=== PATIENT | female | born 1980 | race Hispanic/Latino ===

== ENCOUNTER 2018-11-01 13:24 | Inpatient (IN) | payer OTHER ==
[2018-11-01] MEDS ORDERED: KETOROLAC 30 MG/ML INJ ONE (14:43)
[2018-11-01] MEDS ORDERED: NA CHLORIDE 0.9% 1,000 ML ONE ×2 (14:44→16:30)
[2018-11-01 14:54] LABS: ALT/SGPT 190 U/L (12-78); AST/SGOT 265 U/L (15-37); Albumin 3.7 g/dL (3.4-5.0); Alkaline Phosphatase 149 U/L (45-117); BUN Blood Urea Nitrogen 9 mg/dL (7-18); Bicarbonate 25 mmol/L (21-32); Bilirubin Direct 0.6 mg/dL (0-0.2); Bilirubin Total 1.3 mg/dL (0.2-1.0); Glucose Level 132 mg/dL (74-106); Lipase > 1500 U/L (73-393); Potassium 3.9 mmol/L (3.5-5.1); Protein, Total 8.7 g/dL (6.4-8.2); Sodium Level 138 mmol/L (136-145)
[2018-11-01 14:59] LABS: Absolute Lymphocytes (CBC) 1.9 K/uL (0.7-4.9); Absolute Monocytes 0.8 K/uL (0.1-1.3); Absolute Neutrophil 9.9 K/uL (1.8-8.0); Basophils % 0.6 % (0-1.3); Eosinophils % 0.5 % (0-4.4); Hematocrit 40.3 % (36.0-45.0); Lymphocytes % 15.2 % (15.3-44.8); MCH 28.1 pg (27.0-35.0); MPV 8.2 fL (7.6-11.3); Monocytes % 6.1 % (3.3-12.3)
[2018-11-01 15:11] LABS: Urine Blood 2+ (NEG); Urine Glucose NEGATIVE (NEG); Urine Protein NEGATIVE (NEG)
--- NOTE | 2018-11-01 15:18 | RAD REPORT ---
EXAM DESCRIPTION: US - Abdomen Exam Limited - 11/01/2018 2:18 pm CLINICAL HISTORY: Abdominal pain. FINDINGS: Gallstones are present. A Couple of gallbladder polyps are seen largest measuring 5 millim eters. The gallbladder wall is not thickened. . The biliary tree is normal caliber. IMPRESSION: Cholelithiasis and gallbladder polyps
--- NOTE | 2018-11-01 15:55 | EDPHYS ---
Physician Documentation [facility] Name: Leila Mancia Age: 38 yrs Sex: Female : 1980 Arrival Date: 11/01/2018 Time: 13:26 Bed 13 Private MD: out of town, doctor ED Physician Delroy Nguyen HPI: 11/01 14:10 This 38 yrs old Female presents to ER via Ambulatory with complaints of kb Epigastric Pain, Back Pain. 14:10 The patient presents with abdominal pain in the right upper quadrant. Onset: The kb symptoms/episode began/occurred this morning, at 04:00. The symptoms radiate to right back. Associated signs and symptoms: none. The symptoms are described as constant. Modifying factors: The symptoms are alleviated by nothing, the symptoms are aggravated by nothing. Severity of pain: At its worst the pain was moderate in the emergency department the pain is unchanged. The patient has not experienced similar symptoms in the past. The patient has not recently seen a physician. 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 - Social history:: Smoking status: . - Ebola Screening: : Patient denies travel to an Ebola-affected area in the 21 days before illness onset. ROS: 13:59 Constitutional: Negative for fever, chills, and weight loss, Cardiovascular: Negative kb for chest pain, palpitations, and edema, Respiratory: Negative for shortness of breath, cough, wheezing, and pleuritic chest pain, Back: Negative for injury and pain, : Negative for injury, bleeding, discharge, and swelling, MS/Extremity: Negative for injury and deformity, Skin: Negative for injury, rash, and discoloration, Neuro: Negative for headache, weakness, numbness, tingling, and seizure. 13:59 Abdomen/GI: Positive for abdominal pain, Negative for nausea, vomiting, and diarrhea, constipation, abdominal cramps, abdominal distension, anorexia. Exam: 14:10 Constitutional: This is a well developed, well nourished patient who is awake, alert, kb and in no acute distress. Head/Face: Normocephalic, atraumatic. Chest/axilla: Normal chest wall appearance and motion. Nontender with no deformity. No lesions are appreciated. Cardiovascular: Regular rate and rhythm with a normal S1 and S2. No gallops, murmurs, or rubs. Normal PMI, no JVD. No pulse deficits. Respiratory: Lungs have equal breath sounds bilaterally, clear to auscultation and percussion. No rales, rhonchi or wheezes noted. No increased work of breathing, no retractions or nasal flaring. Skin: Warm, dry with normal turgor. Normal color with no rashes, no lesions, and no evidence of cellulitis. MS/ Extremity: Pulses equal, no cyanosis. Neurovascular intact. Full, normal range of motion. Neuro: Awake and alert, GCS 15, oriented to person, place, time, and situation. Cranial nerves II-XII grossly intact. Motor strength 5/5 in all extremities. Sensory grossly intact. Cerebellar exam normal. Normal gait. 14:10 Abdomen/GI: Inspection: abdomen appears normal, Bowel sounds: normal, in all quadrants, Palpation: soft, in all quadrants, moderate abdominal tenderness, in the right upper quadrant. Vital Signs: 13:29 BP 121 / 80; Pulse 80; Resp 18; Temp 97.6(O); Pulse Ox 100% on R/A; Pain 9/10; tw2 14:30 BP 119 / 78; Pulse 84; Resp 18; Pulse Ox 98% on R/A; Pain 5/10; ph 15:52 BP 108 / 64; Pulse 97; Resp 18; Pulse Ox 99% on R/A; ph 17:12 BP 105 / 59; Pulse 87; Resp 18; Temp 97.8; Pulse Ox 99% on R/A; Pain 2/10; ph 18:30 BP 106 / 65; Pulse 86; Resp 18; Temp 97.8; Pulse Ox 99% on R/A; ph MDM: 13:34 Patient medically screened. kb 13:59 Data reviewed: vital signs, nurses notes. Data interpreted: Pulse oximetry: on room air kb is 100 %. Interpretation: normal. 15:53 Counseling: I had a detailed discussion with the patient and/or guardian regarding: the kb historical points, exam findings, and any diagnostic results supporting the discharge/admit diagnosis, lab results, radiology results, the need for further work-up and treatment in the hospital. Physician consultation: Baron Antoine MD was contacted at 15:53, regarding admission, to the medical/surgical unit. patient's condition, and will see patient in ED, shortly. 11/01 13:38 Order name: Basic Metabolic Panel kb 11/01 13:38 Order name: CBC with Diff kb 11/01 13:38 Order name: Hepatic Function kb 11/01 13:38 Order name: Lipase kb 11/01 14:36 Order name: Urine Dipstick--Ancillary (enter results) lt1 11/01 14:36 Order name: Urine --Ancillary (enter results) lt1 11/01 13:38 Order name: US Abdomen Limited kb 11/01 14:54 Order name: Basic Metabolic Panel; Complete Time: 14:56 EDMS 11/01 14:54 Order name: Liver (Hepatic) Function; Complete Time: 14:56 EDMS 11/01 14:54 Order name: Lipase; Complete Time: 14:56 EDMS 11/01 15:10 Order name: CBC with Automated Diff; Complete Time: 15:13 EDMS 11/01 15:12 Order name: Urine --Ancillary; Complete Time: 15:13 EDMS 11/01 15:12 Order name: Urine Dipstick-Ancillary; Complete Time: 15:13 EDMS 11/01 15:20 Order name: US; Complete Time: 15:24 EDMS 11/01 13:38 Order name: IV Saline Lock; Complete Time: 14:54 kb 11/01 13:38 Order name: Labs collected and sent; Complete Time: 14:54 kb 11/01 13:38 Order name: Urine Dipstick-Ancillary (obtain specimen); Complete Time: 14:53 kb 11/01 13:38 Order name: Urine Test (obtain specimen); Complete Time: 14:53 kb Administered Medications: 14:53 Drug: NS 0.9% 1000 ml Route: IV; Rate: 1000 ml; Site: right antecubital; ph 17:11 Follow up: Response: No adverse reaction; IV Status: Completed infusion ph 14:53 Drug: TORadol 30 mg Route: IVP; Site: right antecubital; ph 17:11 Follow up: Response: No adverse reaction; Pain is decreased ph 16:45 Drug: Rocephin - (cefTRIAXone) 1 grams Route: IVPB; Infused Over: 30 mins; Site: right ph antecubital; 18:28 Follow up: Response: No adverse reaction; IV Status: Completed infusion ph 16:45 Drug: NS 0.9% 1000 ml Route: IV; Rate: 125 ml/hr; Site: right antecubital; ph 18:29 Follow up: Response: No adverse reaction; IV Status: Infusion continued upon admission ph 16:50 Drug: Flagyl 500 mg Volume: 100 ml; Route: IVPB; Rate: 200 ml/hr; Infused Over: 30 ph mins; Site: right antecubital; 18:29 Follow up: Response: No adverse reaction; IV Status: Completed infusion ph Disposition: 18:38 Co-signature as Attending Physician, Delroy Nguyen MD. rn Disposition: 11/01/18 15:54 Hospitalization ordered by Baron Antoine for Inpatient Admission. Preliminary diagnosis are Acute pancreatitis, Cholelithiasis. - Bed requested for Telemetry/MedSurg (Inpatient). - Status is Inpatient Admission. ph - Condition is Stable. - Problem is new. - Symptoms are unchanged. UTI on Admission? No Signatures: Dispatcher [employer] EDLuanne Borges, ROSALIO-C BUDGET ANALYST-Anni Triplett RN RN dw Nieto, Roman, MD MD rn Hall, Patricia, RN RN Kenzie Degroot RN RN tw2 Corrections: (The following items were deleted from the chart) 17:22 15:54 Hospitalization Ordered by Baron Antoine MD for Inpatient Admission. Preliminary [place] diagnosis is Acute pancreatitis; Cholelithiasis. Bed requested for Telemetry/MedSurg (Inpatient). Status is Inpatient Admission. Condition is Stable. Problem is new. Symptoms are unchanged. UTI on Admission? No. kb 18:31 17:22 11/01/2018 15:54 Hospitalization Ordered by Baron Antoine MD for Inpatient ph Admission. Preliminary diagnosis is Acute pancreatitis; Cholelithiasis. Bed requested for Telemetry/MedSurg (Inpatient). Status is Inpatient Admission. Condition is Stable. Problem is new. Symptoms are unchanged. UTI on Admission? No. dw
--- NOTE | 2018-11-01 15:55 | ER ---
Nurse's Notes [facility] Name: Leila Mancia Age: 38 yrs Sex: Female : 1980 Arrival Date: 11/01/2018 Time: 13:26 Bed 13 Private MD: out of town, doctor Diagnosis: Acute pancreatitis;Cholelithiasis Presentation: 11/01 13:28 Presenting complaint: Patient states: i woke up this morning and it felt like gas tw2 pains, upper right abdomen and hurts all the way around my back and lower back. Transition of care: patient was not received from another setting of care. Onset of symptoms was November 01, 2018. Risk Assessment: Do you want to hurt yourself or someone else? Patient reports no desire to harm self or others. Initial Sepsis Screen: Does the patient meet any 2 criteria? No. Patient's initial sepsis screen is negative. Does the patient have a suspected source of infection? No. Patient's initial sepsis screen is negative. Care prior to arrival: None. 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 - Social history:: Smoking status: . - Ebola Screening: : Patient denies travel to an Ebola-affected area in the 21 days before illness onset. Screenin:28 Abuse screen: Denies threats or abuse. Denies injuries from another. Nutritional ph screening: No deficits noted. Tuberculosis screening: No symptoms or risk factors identified. Fall Risk None identified. Assessment: 14:00 General: Appears in no apparent distress. uncomfortable, well groomed, Behavior is ph calm, cooperative, appropriate for age, Denies fever, feeling ill. Pain: Complains of pain in right upper quadrant Pain radiates to back. Neuro: Level of Consciousness is awake, alert, obeys commands, Oriented to person, place, time, situation. Cardiovascular: Capillary refill < 3 seconds in bilateral fingers Patient's skin is warm and dry. Respiratory: Airway is patent Respiratory effort is even, unlabored, Respiratory pattern is regular, symmetrical. GI: Abdomen is round non-distended, Bowel sounds present X 4 quads. Abd is soft X 4 quads Abdomen is tender to palpation in epigastric area and right upper quadrant Reports upper abdominal pain, epigastric pain, Patient currently denies diarrhea, nausea, vomiting. Derm: Skin is intact, is healthy with good turgor, Skin is pink, warm \T\ dry. 15:28 Reassessment: Patient appears in no apparent distress at this time. Patient and/or ph family updated on plan of care and expected duration. Pain level reassessed. Patient is alert, oriented x 3, equal unlabored respirations, skin warm/dry/pink. Pt resting quietly, awaiting lab and US results. 15:51 Reassessment: Patient appears in no apparent distress at this time. Patient and/or ph family updated on plan of care and expected duration. Pain level reassessed. Patient is alert, oriented x 3, equal unlabored respirations, skin warm/dry/pink. ERP at bedside to speak w/ pt. 17:12 Reassessment: Patient appears in no apparent distress at this time. Patient and/or ph family updated on plan of care and expected duration. Pain level reassessed. Patient is alert, oriented x 3, equal unlabored respirations, skin warm/dry/pink. Pt resting quietly, rates pain 2/10 and denies nausea at this time, awaiting room assignment. 18:08 Reassessment: Patient appears in no apparent distress at this time. Patient and/or ph family updated on plan of care and expected duration. Pain level reassessed. Patient is alert, oriented x 3, equal unlabored respirations, skin warm/dry/pink. Pt resting quietly, denies pain or nausea at this time, family at bedside, attempted to call report, receiving nurse unavailable, asked to call back in 5 min. Vital Signs: 13:29 BP 121 / 80; Pulse 80; Resp 18; Temp 97.6(O); Pulse Ox 100% on R/A; Pain 9/10; tw2 14:30 BP 119 / 78; Pulse 84; Resp 18; Pulse Ox 98% on R/A; Pain 5/10; ph 15:52 BP 108 / 64; Pulse 97; Resp 18; Pulse Ox 99% on R/A; ph 17:12 BP 105 / 59; Pulse 87; Resp 18; Temp 97.8; Pulse Ox 99% on R/A; Pain 2/10; ph 18:30 BP 106 / 65; Pulse 86; Resp 18; Temp 97.8; Pulse Ox 99% on R/A; ph ED Course: 13:26 Patient arrived in ED. as 13:26 out of town, doctor is Private Physician. as 13:29 Triage completed. tw2 13:29 Arm band placed on. tw2 13:34 [facility]anne Johnson [facility]C [facility]. kb 13:34 Delroy Nguyen MD is Attending Physician. kb 13:49 Camilla Caceres RN is Primary Nurse. ph 14:00 Initial lab(s) drawn, by vt, sent to lab. Inserted saline lock: 20 gauge in right ph antecubital area, using aseptic technique. Blood collected. 15:29 Patient has correct armband on for positive identification. Bed in low position. Call ph light in reach. Side rails up X 1. Pulse ox on. NIBP on. Warm blanket given. 15:54 Baron Antoine MD is Hospitalizing Provider. kb 17:12 No provider procedures requiring assistance completed. Patient admitted, IV remains in ph place. Administered Medications: 14:53 Drug: NS 0.9% 1000 ml Route: IV; Rate: 1000 ml; Site: right antecubital; ph 17:11 Follow up: Response: No adverse reaction; IV Status: Completed infusion ph 14:53 Drug: TORadol 30 mg Route: IVP; Site: right antecubital; ph 17:11 Follow up: Response: No adverse reaction; Pain is decreased ph 16:45 Drug: Rocephin - (cefTRIAXone) 1 grams Route: IVPB; Infused Over: 30 mins; Site: right ph antecubital; 18:28 Follow up: Response: No adverse reaction; IV Status: Completed infusion ph 16:45 Drug: NS 0.9% 1000 ml Route: IV; Rate: 125 ml/hr; Site: right antecubital; ph 18:29 Follow up: Response: No adverse reaction; IV Status: Infusion continued upon admission ph 16:50 Drug: Flagyl 500 mg Volume: 100 ml; Route: IVPB; Rate: 200 ml/hr; Infused Over: 30 ph mins; Site: right antecubital; 18:29 Follow up: Response: No adverse reaction; IV Status: Completed infusion ph Outcome: 15:54 Decision to Hospitalize by Provider. kb 18:31 Admitted to Med/surg accompanied by tech, family with patient, via wheelchair, room ph 423, with chart, Report called to SULTANA Cam 18:31 Condition: stable 18:31 Instructed on the need for admit. 18:31 Patient left the ED. ph Signatures: Luanne Johnson, KELLY MACHINE OPERATOR-C KELLY MACHINE OPERATOR-Janae Philip as Camilla Caceres, SULTANA RN ph Kenzie Degroot RN RN tw2
[2018-11-01] MEDS ORDERED: ACETAMINOPHEN 500 MG TAB PO PRN (16:09)
[2018-11-01] MEDS ORDERED: ONDANSETRON 4 MG/2 ML VIAL IV PRN (16:09)
[2018-11-01] MEDS ORDERED: MORPHINE 2 MG/ML SYR IV PRN (16:09)
[2018-11-01] MEDS ORDERED: METRONIDAZOLE 500mg IVPB 500 MG/100 ML BAG IV ONE (16:30)
[2018-11-01] MEDS ORDERED: CEFTRIAXONE/SWI 1gm 1 GM/10 ML SYR ONE (16:30)
[2018-11-01] MEDS: NA CHLORIDE 0.9% 1,000 ML IV SCH (17:00)
[2018-11-01 18:48] VITALS: BMI 39.6
[2018-11-01] MEDS ORDERED: D50W 25 GM/50 ML SYRINGE IV PRN (22:01)
[2018-11-01] MEDS ORDERED: GLUCAGON 1 MG/VIAL IM PRN (22:01)
--- NOTE | 2018-11-01 22:02 | P.HP ---
Certification for Inpatient Patient admitted to: Inpatient With expected LOS: >2 Midnights Practitioner: I am a practitioner with admitting privileges, knowledge of patient current condition, hospital course, and medical plan of care. Services: Services provided to patient in accordance with Admission requirements found in Title 42 Section 412.3 of the Code of Federal Regulations Patient History Date of Service: 11/02/18 History of Present Illness: This is a 38-year-old female with history of diabetes type 2, hyperlipidemia and history of TIA who is admitted for gallstone pancreatitis. Per patient, she started having like around 4:00 a.m. prior to admission. This pain was sharp, radiating to the back. She denied any nausea, vomiting, diarrhea, constipation, fevers chills. She came to the ER because the pain was progressively getting worse and she was unable to handle the pain. In the ER, she was found to have pancreatitis with elevated lipase levels. Right upper quadrant ultrasound was done which showed cholelithiasis. She was admitted for further evaluation. At the time of my exam, patient was in no acute distress, hemodynamically stable, and stated that her pain was improved though still there. Allergies No Known Allergies Allergy (Unverified 11/01/18 18:50) Home Medications: Atorvastatin Calcium [Lipitor*] 20 mg PO DAILY 11/01/18 Metformin HCl 1,000 mg PO BID 11/01/18 - Past Medical/Surgical History -: Diabetes mellitus, type 2 -: Hyperlipidemia -: History of TIA Review of Systems General: As per HPI, Unremarkable Eyes: Unremarkable ENT: Unremarkable Respiratory: Unremarkable Cardiovascular: Unremarkable Gastrointestinal: Abdominal Pain, As per HPI Genitourinary: Unremarkable Musculoskeletal: Unremarkable Integumentary: Unremarkable Neurological: Unremarkable Lymphatics: Unremarkable Physical Examination - Vital Signs Temperature: 97.3 F Blood Pressure: 110/58 Pulse: 79 Respirations: 20 Pulse Ox (%): 98 - Physical Exam General: Alert, In no apparent distress, Oriented x3 HEENT: Atraumatic, PERRLA, Mucous membr. moist/pink, EOMI, Sclerae nonicteric Neck: Supple, 2+ carotid pulse no bruit, No LAD, Without JVD or thyroid abnormality Respiratory: Clear to auscultation bilaterally, Normal air movement Cardiovascular: Regular rate/rhythm, Normal S1 S2 Gastrointestinal: Normal bowel sounds, No tenderness Musculoskeletal: No tenderness Integumentary: No rashes Neurological: Normal gait, Normal speech, Normal strength at 5/5 x4 extr, Normal tone, Normal affect Lymphatics: No axilla or inguinal lymphadenopathy - Studies Laboratory Data (last 24 hrs) 11/01/18 14:20: WBC 12.8 H, Hgb 13.5, Hct 40.3, Plt Count 352 11/01/18 14:20: Sodium 138, Potassium 3.9, BUN 9, Creatinine 0.80, Glucose 132 H , Total Bilirubin 1.3 H, AST 265 H, ALT 190 H, Alkaline Phosphatase 149 H, Lipase > 1500 H Assessment and Plan - Plan Gallstone pancreatitis Cholelithiasis MRCP ordered GI consulted, Dr. Gutierrez General surgery consulted, Dr. Francois Keep NPO, IV fluids. IV antibiotics Type 2 DM Continue Accu-Cheks, sliding scale insulin HLD Will continue her statin once she is tolerating p.o. Hx of TIA Stable at this time DVT prophylaxis: Lovenox GI prophylaxis: None Diet: NPO Disposition: Pending surgical consultation, MRCP, symptomatic improvement. - Advance Directives Does patient have a Living Will: No Does patient have a Durable POA for Healthcare: No Physician Review: Patient Assessed, Agree with Above Assessment and Plan Time Spent Managing Pts Care (In Minutes): 55
[2018-11-01] MEDS ORDERED: CEFOXITIN/SWI 1gm 2 GM/20 ML SYR ONE (22:48)
--- NOTE | 2018-11-02 02:10 | CON ---
Date of Consultation: 11/01/2018 Reason: Gallstone pancreatitis. History Of Present Illness: The patient is a 38-year-old female who presents to the emergency room w ith acute onset of epigastric pain going to the back. Denies any nausea, vomiting. No previous epis ode of this kind of pain. No diarrhea or constipation. No blood in her stool. No dysuria or hematu jus. No sore throat, runny nose, cough, headaches, or dizziness. No chest pain and food does not af fect the pain. Review of Systems: Otherwise unremarkable. Past Medical History: Significant for diabetes, high cholesterol. Past Surgical History: . Tonsillectomy. Allergies: NO ALLERGIES. Social History: The patient denies smoking, drinks occasionally. Family History: Noncontributory. Physical Examination: Vital Signs: Stable. She is currently afebrile. General: She is awake, alert, oriented x3. Head and Neck: Cranial nerves 2 through 12 are grossly within normal limits. No neck masses. No JV D. Throat clear. Neck is supple. No evidence of icterus. Chest: Clear. Heart: S1, S2. Abdomen: Soft. Minimal epigastric tenderness and right upper quadrant tenderness. No rebound, rigi dity, or guarding. Extremities: Adequately perfused. Nontender. Neuro: Nonfocal. Laboratory Data: White count on admission was 12.8, neutrophil percentage is 77.6. Chemistry review ed. Glucose is 132, total bili is 1.3, direct bili is 0.6, AST is 265, ALT is 190, alk phos is 149. Her lipase, however, is greater than 1500. She had an ultrasound of the abdomen done, which shows m ultiple gallstones, couple of polyps in the gallbladder measuring 5 mm, the biliary tree is normal, g allbladder wall is not thickened. Assessment: Gallstone pancreatitis and gallbladder polyps. Recommendation: The patient is scheduled to get an MRCP. If she does have a stone in the bile duct, she will need an ERCP prior to surgical intervention, however, given her pancreatitis, she needs bow el rest, IV fluids, antibiotics, we will start her on and follow her labs. Once is determ ine whether or not she needs an ERCP and it is accomplished and her pancreatitis is better, the patie nt will need a lap liang, possible open. Risks, benefits, alternatives of the procedure were explain ed in detail to the patient and family. We will follow this patient while in the hospital. EFRAIN/ROSEY Voice ID: [id number] Report ID: [id number]
[2018-11-02 04:49] LABS: Absolute Lymphocytes (CBC) 2.7 K/uL (0.7-4.9); Absolute Monocytes 0.5 K/uL (0.1-1.3); Absolute Neutrophil 5.6 K/uL (1.8-8.0); Basophils % 0.5 % (0-1.3); Eosinophils % 1.8 % (0-4.4); Hematocrit 34.4 % (36.0-45.0); Lymphocytes % 30.5 % (15.3-44.8); MCH 28.2 pg (27.0-35.0); MCV 83.3 fL (80-100); MPV 8.1 fL (7.6-11.3); Monocytes % 5.5 % (3.3-12.3); RBC Red Blood Cell Count 4.13 M/uL (3.86-4.86)
[2018-11-02] MEDS: NA CHLORIDE 0.9% 1,000 ML IV SCH ×3 (04:57→20:31)
[2018-11-02 05:26] LABS: Magnesium 2.1 mg/dL (1.8-2.4); Phosphorus 3.2 mg/dL (2.5-4.9)
[2018-11-02] MEDS: CEFOXITIN SODIUM 1 GM/VIAL IVPB SCH ×2 (05:37)
[2018-11-02 05:43] LABS: ALT/SGPT 175 U/L (12-78); AST/SGOT 115 U/L (15-37); Albumin 3.1 g/dL (3.4-5.0); Alkaline Phosphatase 121 U/L (45-117); BUN Blood Urea Nitrogen 8 mg/dL (7-18); Bicarbonate 23 mmol/L (21-32); Bilirubin Total 0.8 mg/dL (0.2-1.0); Glucose Level 117 mg/dL (74-106); HDL Cholesterol 63 mg/dL (40-60); LDL Cholesterol, Calculated 41 (<130); Lipase 1996 U/L (73-393); Potassium 3.3 mmol/L (3.5-5.1); Protein, Total 7.1 g/dL (6.4-8.2); Sodium Level 142 mmol/L (136-145)
[2018-11-02 05:44] LABS: Amylase Level 289 U/L (25-115)
--- NOTE | 2018-11-02 06:59 | RAD REPORT ---
EXAM DESCRIPTION: MRI - Cholangiogram - 11/01/2018 9:53 pm CLINICAL HISTORY: Cholelithiasis, pancreatitis, abdominal pain COMPARISON: Abdomen ultrasound November 01 TECHNIQUE: Axial and coronal heavily T2 weighted sequences were obtained. Coronal T2 HASTE fat satur ation static and coronal multiplane reconstruction imaging generated and reviewed. Horizontal and sonya tical axis rotational views obtained using maximum intensity projection (MIP) protocol. FINDINGS: The liver and spleen show no suspicious findings. No renal parenchymal abnormality. No mas s of the pancreas seen on limited assessment. No abnormal fluid collection around the pancreas. Gallbladder is well filled but not dilated. The known gallstone is difficult to visualize on this exa mination. No pericholecystic fluid present. No intrahepatic or extrahepatic biliary tree dilatation. No duct stone, stricture or mass identifiabl e. IMPRESSION: Normal size biliary tree with no duct stone, stricture or mass.
[2018-11-02] MEDS ORDERED: KCL 20 MEQ/100 mL IVPB 20 MEQ/100 ML BAG IV SCH ×3 (07:00→21:00)
[2018-11-02] MEDS ORDERED: INSULIN -REGULAR HUMAN 50 UNIT/0.5 ML ML SQ SCH (07:30)
[2018-11-02] MEDS ORDERED: INFLUENZA VACCINE (for 3y+) 0.5 ML DOSE IMVAC ONE (08:00)
[2018-11-02] MEDS ORDERED: D50W 25 GM/50 ML SYRINGE IV PRN (08:29)
[2018-11-02] MEDS ORDERED: GLUCAGON 1 MG/VIAL IM PRN (08:29)
[2018-11-02] MEDS: CEFOXITIN/SWI 1gm 1 GM/10 ML SYR IV SCH ×2 (11:35→17:42)
[2018-11-02] MEDS: INSULIN -REGULAR HUMAN 50 UNIT/0.5 ML ML SQ SCH ×2 (11:39→17:39)
--- NOTE | 2018-11-02 15:43 | PN ---
Date of Progress Note: 11/02/2018 Objective: General: The patient is awake and alert, no complaint. Vital Signs: Stable, afebrile. Abdomen: Soft, nondistended, and nontender. Positive bowel sounds. Laboratory Data: Reviewed. Lipase and amylase still elevated. Remainder of the LFTs are improving. MRCP is negative for any stone, structure or mass in the common bile duct. Assessment: Gallstone pancreatitis, improving. Recommendations: We will proceed with lap liang, possible open, tomorrow. The patient understands t he risks, benefits, and alternatives and agrees to procedure. /MODL Voice ID: [id number] Report ID: [id number]
--- NOTE | 2018-11-02 18:55 | P.PN ---
Subjective Date of Service: 11/02/18 Subjective: No new changes, No C/O voiced, Improving Patient seen and examined at bedside. No family at bedside. Chart reviewed and case discussed with nursing staff. Review of Systems As known Physical Examination - Vital Signs Temperature: 97.3 F Blood Pressure: 110/58 Pulse: 79 Respirations: 20 Pulse Ox (%): 98 - Physical Exam General: Alert, In no apparent distress, Oriented x3 HEENT: Atraumatic, PERRLA, EOMI Neck: Supple, JVD not distended Respiratory: Clear to auscultation bilaterally, Normal air movement Cardiovascular: Regular rate/rhythm, Normal S1 S2 Gastrointestinal: Normal bowel sounds, No tenderness Musculoskeletal: No tenderness Integumentary: No rashes Neurological: Normal speech, Normal tone, Normal affect Lymphatics: No axilla or inguinal lymphadenopathy Assessment And Plan - Plan Gallstone pancreatitis Cholelithiasis MRCP ordered, negative for any biliary stones, strictures. GI consulted, Dr. Gutierrez General surgery consulted, Dr. Francois. Recommendations appreciated Keep NPO, IV fluids. IV antibiotics Type 2 DM Continue Accu-Cheks, sliding scale insulin HLD Will continue her statin once she is tolerating p.o. Hx of TIA Stable at this time DVT prophylaxis: Lovenox GI prophylaxis: None Diet: NPO Disposition: Pending lap liang tomorrow. Physician Review: Patient Assessed, Agree with Above Assessment and Plan Time Spent Managing PTS Care (In Minutes): 35
[2018-11-02] MEDS ORDERED: NA CHLORIDE 0.9% 1,000 ML IV ONE (18:59)
[2018-11-02] MEDS: ATORVASTATIN 20 MG TAB PO SCH (20:35)
[2018-11-03] MEDS: CEFOXITIN/SWI 1gm 1 GM/10 ML SYR IV SCH ×5 (01:10→23:13)
[2018-11-03] MEDS: NA CHLORIDE 0.9% 1,000 ML IV SCH ×4 (04:23→18:51)
[2018-11-03] MEDS: INSULIN -REGULAR HUMAN 50 UNIT/0.5 ML ML SQ SCH ×5 (06:00→20:46)
[2018-11-03 07:28] LABS: Absolute Lymphocytes (CBC) 2.5 K/uL (0.7-4.9); Absolute Monocytes 0.4 K/uL (0.1-1.3); Absolute Neutrophil 4.1 K/uL (1.8-8.0); Basophils % 0.7 % (0-1.3); Eosinophils % 4.1 % (0-4.4); Hematocrit 34.6 % (36.0-45.0); Lymphocytes % 34.6 % (15.3-44.8); MCH 28.2 pg (27.0-35.0); MCV 83.7 fL (80-100); MPV 7.7 fL (7.6-11.3); Monocytes % 5.5 % (3.3-12.3); RBC Red Blood Cell Count 4.13 M/uL (3.86-4.86)
[2018-11-03 07:44] LABS: ALT/SGPT 112 U/L (12-78); AST/SGOT 39 U/L (15-37); Albumin 3.1 g/dL (3.4-5.0); Alkaline Phosphatase 113 U/L (45-117); Amylase Level 52 U/L (25-115); BUN Blood Urea Nitrogen 5 mg/dL (7-18); Bicarbonate 25 mmol/L (21-32); Bilirubin Direct 0.3 mg/dL (0-0.2); Bilirubin Total 0.9 mg/dL (0.2-1.0); Glucose Level 99 mg/dL (74-106); Lipase 184 U/L (73-393); Phosphorus 2.6 mg/dL (2.5-4.9); Potassium 3.6 mmol/L (3.5-5.1); Protein, Total 7.1 g/dL (6.4-8.2); Sodium Level 141 mmol/L (136-145)
[2018-11-03] MEDS ORDERED: NA CHLORIDE 0.9% 1,000 ML ONE (07:58)
[2018-11-03] MEDS ORDERED: PROPOFOL 200 MG/20 ML VIAL IV ONE (10:56)
[2018-11-03] MEDS ORDERED: LIDOCAINE 2% MPF 5 ML VIAL ONE (10:56)
[2018-11-03] MEDS ORDERED: MIDAZOLAM HCL 2 MG/2 ML INJ ONE ×2 (10:56→13:05)
[2018-11-03] MEDS ORDERED: ROCURONIUM 50 MG/5 ML VIAL IV ONE (10:57)
[2018-11-03] MEDS ORDERED: FENTANYL CITR 100 MCG/2 ML ONE (10:57)
[2018-11-03] MEDS ORDERED: ONDANSETRON 4 MG/2 ML VIAL ONE (10:57)
[2018-11-03] MEDS ORDERED: LIDOCAINE 1% MPF 30 ML VIAL ONE (11:22)
[2018-11-03] MEDS ORDERED: GLYCOPYRROLATE 0.2 MG/ML SYR ONE (12:40)
[2018-11-03] MEDS ORDERED: NEOSTIGMINE 1 MG/ML -5 ML SYRINGE ONE (12:40)
--- NOTE | 2018-11-03 12:40 | P.OP ---
Preoperative diagnosis: Gallstone Pancreatitis Postoperative diagnosis: same Primary procedure: Lap Ana Maria Anesthesia: Gen Estimated blood loss: 50 cc Specimen: GB Findings: as above Complications: None Transferred to: Recovery Room Condition: Good
[2018-11-03] MEDS: FENTANYL CITR 100 MCG/2 ML ONE ×2 (12:51→13:16)
[2018-11-03] MEDS ORDERED: KETOROLAC 30 MG/ML INJ ONE (13:03)
[2018-11-03] MEDS ORDERED: HYDROMORPHONE HCL 1 MG/ML INJ IV PRN (14:44)
[2018-11-03] MEDS ORDERED: ONDANSETRON 4 MG/2 ML VIAL IV PRN (14:44)
[2018-11-03] MEDS: HYDROCODONE/APAP 7.5/325 MG TAB PO PRN (15:49)
[2018-11-03] MEDS: ATORVASTATIN 20 MG TAB PO SCH (20:26)
[2018-11-03] MEDS ORDERED: POTASSIUM CL SA 10 MEQ TAB PO ONE (21:00)
--- NOTE | 2018-11-03 22:09 | P.PN ---
Subjective Date of Service: 11/03/18 Chief Complaint: Gallstone pancreatitis Subjective: No new changes, No C/O voiced, Improving Patient seen and examined at bedside. No family at bedside. Chart reviewed and case discussed with nursing staff. Review of Systems as noted Physical Examination - Vital Signs Temperature: 97.5 F Blood Pressure: 124/70 Pulse: 65 Respirations: 16 Pulse Ox (%): 98 - Physical Exam General: Alert, In no apparent distress, Oriented x3 HEENT: Atraumatic, PERRLA, EOMI Neck: Supple, JVD not distended Respiratory: Clear to auscultation bilaterally, Normal air movement Cardiovascular: Regular rate/rhythm, Normal S1 S2 Gastrointestinal: Normal bowel sounds, Tenderness Musculoskeletal: No tenderness Integumentary: No rashes Neurological: Normal speech, Normal tone, Normal affect Lymphatics: No axilla or inguinal lymphadenopathy Assessment And Plan - Plan Gallstone pancreatitis Cholelithiasis MRCP ordered, negative for any biliary stones, strictures. GI consulted, Dr. Gutierrez General surgery consulted, Dr. Francois. Recommendations appreciated she is pod#0, s/p lap liang. Doing well, try CLD, advance as tolerated. IV antibiotics Type 2 DM Continue Accu-Cheks, sliding scale insulin HLD Will continue her statin once she is tolerating p.o. Hx of TIA Stable at this time DVT prophylaxis: Lovenox GI prophylaxis: None Diet: CLD, advance as tolerated Disposition: s/p lap liang, pending symptomatic improvement. Physician Review: Patient Assessed, Agree with Above Assessment and Plan Time Spent Managing PTS Care (In Minutes): 45
--- NOTE | 2018-11-03 23:22 | OP ---
Date of Procedure: 11/03/2018 Surgeon: Tino Francois MD Preoperative Diagnosis: Gallstone pancreatitis. Postoperative Diagnosis: Gallstone pancreatitis. Procedure: Laparoscopic cholecystectomy. Estimated Blood Loss: Approximately 50 cc. Specimen: Gallbladder. Findings: As above. Anesthesia: General. Complications: None. Disposition: The patient tolerated the procedure in stable condition and taken to Recovery in good g eneral condition. Procedure In Detail: The patient was brought to the OR and placed in supine position. General anest hesia was begun. The patient was prepped and draped in usual sterile fashion. Lidocaine 1% infiltra tiana locally. A 15-blade was used to make a 1 cm supraumbilical midline incision. Subcutaneous tissu es divided. The fascia was identified and divided. A #1 Vicryl stay suture was placed. Peritoneal cavity was entered with sharp and blunt dissection. A 12 mm trocar was placed into the peritoneal ca vity under direct vision. Pneumoperitoneum was established. 3 mm trocars placed, 1 in the epigastri um just to the right of midline and 2 in the right subcostal region. Laparoscopy revealed an inflame d gallbladder. Fundus was retracted superiorly. Infundibulum was identified and retracted inferolat erally. Cystic duct and cystic artery were identified with blunt dissection used. Both structures w ere divided between clips. There was a branch of the cystic artery that had some bleeding and this w as easily controlled with vascular clips. Then cautery was utilized to remove the gallbladder away f rom the liver bed. Bleeding on the liver bed was controlled with cautery. The gallbladder was retri eved through the umbilicus via an EndoCatch bag. Right upper quadrant was thoroughly irrigated. Eff luent was clear. No evidence of bleeding or bile leakage appreciated. Subsequently, all trocars wer e removed under direct vision. Stay sutures were tied to each other to reapproximate the fascial def ect. Subcutaneous wounds were irrigated. Bleeding was controlled with cautery. A 3-0 chromic was u sed to reapproximate the subcutaneous tissue and eh were used to close the skin. Sterile dressi ng was applied. The patient was awakened and taken to Recovery in good general condition. /MODL Voice ID: [id number] Report ID: [id number]
[2018-11-04] MEDS: NA CHLORIDE 0.9% 1,000 ML IV SCH ×2 (02:14→06:30)
[2018-11-04 05:31] LABS: Absolute Lymphocytes (CBC) 2.7 K/uL (0.7-4.9); Absolute Monocytes 0.6 K/uL (0.1-1.3); Absolute Neutrophil 6.3 K/uL (1.8-8.0); Basophils % 0.5 % (0-1.3); Eosinophils % 1.9 % (0-4.4); Hematocrit 31.7 % (36.0-45.0); Lymphocytes % 27.4 % (15.3-44.8); MCH 28.8 pg (27.0-35.0); MCV 83.6 fL (80-100); MPV 8.1 fL (7.6-11.3); Monocytes % 6.5 % (3.3-12.3)
[2018-11-04 05:42] LABS: ALT/SGPT 98 U/L (12-78); AST/SGOT 48 U/L (15-37); Albumin 2.8 g/dL (3.4-5.0); Alkaline Phosphatase 100 U/L (45-117); BUN Blood Urea Nitrogen 4 mg/dL (7-18); Bicarbonate 28 mmol/L (21-32); Bilirubin Total 0.9 mg/dL (0.2-1.0); Glucose Level 111 mg/dL (74-106); Potassium 3.7 mmol/L (3.5-5.1); Protein, Total 6.5 g/dL (6.4-8.2); Sodium Level 140 mmol/L (136-145)
[2018-11-04] MEDS: HYDROCODONE/APAP 7.5/325 MG TAB PO PRN (05:44)
[2018-11-04] MEDS: CEFOXITIN/SWI 1gm 1 GM/10 ML SYR IV SCH ×2 (05:46→13:16)
[2018-11-04] MEDS ORDERED: POTASSIUM CL SA 10 MEQ TAB PO ONE (06:30)
[2018-11-04] MEDS: INSULIN -REGULAR HUMAN 50 UNIT/0.5 ML ML SQ SCH ×2 (07:30→11:30)
[2018-11-04 09:45] VITALS: O2SAT 98
--- NOTE | 2018-11-04 12:51 | PN ---
Subjective: The patient is awake, alert, and no complaint. Objective: Vital Signs: Stable, afebrile. Abdomen: Benign. Laboratory Data: Reviewed. Assessment: Status post lap choly for gallstone, pancreatitis. Recommendation: Cleared for discharge from surgical upon reviewed and discharge instructions given. Follow up in my office in a week. /MODL Voice ID: [id number] Report ID: [id number]
[2018-11-04 14:18] VITALS: BP 110/60; TEMP 97
--- NOTE | 2018-11-04 14:34 | P.PN ---
Subjective Date of Service: 11/04/18 Chief Complaint: Gallstone pancreatitis Subjective: Improving (Feels better with only post-op pain now. Wants to go home. Female relative in room with her.) Review of Systems 10-point ROS is otherwise unremarkable Gastrointestinal: Abdominal Pain (improved) Physical Examination - Vital Signs Temperature: 97.0 F Blood Pressure: 110/60 Pulse: 70 Respirations: 18 Pulse Ox (%): 96 - Physical Exam General: Alert, In no apparent distress, Oriented x3, Cooperative HEENT: Atraumatic, Normocephalic, PERRLA, EOMI Neck: Supple Respiratory: Normal air movement Cardiovascular: Normal pulses, Regular rate/rhythm Gastrointestinal: No rebound, Tenderness (mild post-op pain), Guarding (mild) Neurological: Normal speech, Normal strength at 5/5 x4 extr Assessment And Plan - Current Problems (Diagnosis) (1) Epigastric abdominal pain Current Visit: Yes Status: Acute Comment: Improved. (2) RUQ abdominal pain Current Visit: Yes Status: Acute (3) Abnormal ultrasound Current Visit: Yes Status: Acute (4) Cholelithiasis Current Visit: Yes Status: Acute (5) Pancreatitis, gallstone Onset Date: 11/02/18 Current Visit: Yes Status: Acute Comment: Improved. - Plan REC: 1) diet as per surgery 2) d/c soon 3) GI clinic f/y prn Physician Review: Patient Assessed, Agree with Above Assessment and Plan
--- NOTE | 2018-11-04 16:54 | P.DS ---
Admission Date: 11/01/18 Discharge Date: 11/04/18 Disposition: ROUTINE DISCHARGE Discharge Condition: GOOD Reason for Admission: Gallstone pancreatitis Consultations: General Surgery, Dr. Francois Gastroenterology, Dr. morrow Procedures: MRCP, negative for biliary stones 11/03/2018: Laparoscopic cholecystectomy with Dr. Francois Brief History of Present Illness: This is a 38-year-old female with history of diabetes type 2, hyperlipidemia and history of TIA who is admitted for gallstone pancreatitis. Per patient, she started having like around 4:00 a.m. prior to admission. This pain was sharp, radiating to the back. She denied any nausea, vomiting, diarrhea, constipation, fevers chills. She came to the ER because the pain was progressively getting worse and she was unable to handle the pain. In the ER, she was found to have pancreatitis with elevated lipase levels. Right upper quadrant ultrasound was done which showed cholelithiasis. She was admitted for further evaluation. At the time of my exam, patient was in no acute distress, hemodynamically stable, and stated that her pain was improved though still there. Hospital Course: Gallstone pancreatitis Cholelithiasis MRCP was ordered, negative for any biliary stones, strictures. GI was consulted, Dr. Morrow General surgery consulted, Dr. Francois. Patient underwent a laparoscopic cholecystectomy. She did well post surgery, started on clear liquid diet and advanced to GI soft without any concerns or problems. At the time of discharge, patient was tolerating a GI soft diet, she was asymptomatic except for the incision site pain, denying any nausea or vomiting. She was hemodynamically stable, ambulating without any problems. Her diagnoses and symptoms were explained extensively, all questions were answered. Patient verbalized understanding. She will follow up with Dr. Francois in 2 weeks for post surgery Check. She remains stable otherwise. Vital Signs/Physical Exam: Temp Pulse Resp BP Pulse Ox 97.0 F 70 18 110/60 96 11/04/18 14:34 11/04/18 14:34 11/04/18 14:34 11/04/18 14:34 11/04/18 14:34 General: Alert, In no apparent distress HEENT: Atraumatic, PERRLA, EOMI Neck: Supple, JVD not distended Respiratory: Clear to auscultation bilaterally, Normal air movement Cardiovascular: Regular rate/rhythm, Normal S1 S2 Gastrointestinal: Normal bowel sounds, Other (Incision site is clear/dry/intact) Musculoskeletal: No tenderness Integumentary: No rashes Neurological: Normal speech, Normal tone, Normal affect Lymphatics: No axilla or inguinal lymphadenopathy Laboratory Data at Discharge: WBC 9.8 K/uL (4.3-10.9) D 11/04/18 04:26 Hgb 10.9 g/dL (12.0-15.0) L 11/04/18 04:26 Hct 31.7 % (36.0-45.0) L 11/04/18 04:26 Plt Count 274 K/uL (152-406) 11/04/18 04:26 Sodium 140 mmol/L (136-145) 11/04/18 04:26 Potassium 3.7 mmol/L (3.5-5.1) 11/04/18 04:26 BUN 4 mg/dL (7-18) L 11/04/18 04:26 Creatinine 0.50 mg/dL (0.55-1.3) L 11/04/18 04:26 Glucose 111 mg/dL (74-106) H 11/04/18 04:26 Phosphorus 2.6 mg/dL (2.5-4.9) 11/03/18 07:10 Magnesium 2.0 mg/dL (1.8-2.4) 11/03/18 07:10 Total Bilirubin 0.9 mg/dL (0.2-1.0) 11/04/18 04:26 AST 48 U/L (15-37) H 11/04/18 04:26 ALT 98 U/L (12-78) H 11/04/18 04:26 Alkaline Phosphatase 100 U/L (45-117) 11/04/18 04:26 Triglycerides 118 mg/dL (<150) 11/02/18 03:57 Cholesterol 128 mg/dL (<200) 11/02/18 03:57 HDL Cholesterol 63 mg/dL (40-60) H 11/02/18 03:57 Cholesterol/HDL Ratio 2.03 11/02/18 03:57 Amylase 52 U/L (25-115) D 11/03/18 07:10 Lipase 184 U/L (73-393) 11/03/18 07:10 Home Medications: Atorvastatin Calcium [Lipitor*] 20 mg PO DAILY 11/01/18 Metformin HCl 1,000 mg PO BID 11/01/18 Codeine/APAP [Tylenol W/Codeine #3 tab] 1 tab PO Q4HP PRN #40 tab 11/04/18 New Medications: Codeine/APAP [Tylenol W/Codeine #3 tab] 1 tab PO Q4HP PRN #40 tab PRN Reason: Pain Patient Discharge Instructions: may shower in am. keep wound clean and dry Diet: ADA Activity: No lifting more than 10 lbs Followup: Tino Francois MD [ACTIVE - CAN ADMIT] - 11/13/18 (Call office to schedule an appointment) Ravinder Morrow MD [ASSOCIATE-ACTIVE - CAN ADMIT] - If your Symptoms Worsen ( Follow up as needed) Physician Review: Patient Assessed, Agree with Above Assessment and Plan Time spent managing pt's care (in minutes): 45
--- NOTE | 2018-11-04 19:06 | CON ---
Date of Consultation: 11/02/2018 Reason For Consultation: Right upper quadrant pain with gallstone, pancreatitis. History Of Present Illness: This patient is a 38-year-old female with history of diabetes, hyperlipidemia, TIA. The patient presented to hospital with midepigastric right upper quadrant pain radiating to back without nausea, vomiting, fevers, chills, night sweats. The patient was found to h ave multiple gallstones in gallbladder on ultrasound of abdomen with gallbladder polyps approximately 5 mm in size and GI was called. MRCP was obtained, which was negative. The patient had lipase grea ter than 1500 on admission. Next lipase was 1995. The patient states the pain was approximately 10/ 10 on admission, now is down to 0 with pain medications. She is on IV fluids and n.p.o. currently. Past Medical History: As stated above, consistent with diabetes, hyperlipidemia, TIA. Home Medications: Include Lipitor, metformin. Allergies: NKDA. Social History: She is single, 1 son. No tobacco. Occasional alcohol, social drinking only. 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 Family History: Father is alive and well. Mother is alive with diabetes, nonalcoholic steatohepatit is, stroke, cirrhosis, and hepatitis C. Review of Systems: The patient has right upper quadrant midepigastric pain radiating to back, especially on the right si de and mid lower back. She denies any nausea, vomiting, fevers, chills, night sweats, melena, hemato chezia, hematemesis, coffee-ground emesis, hematuria, dysuria, polydipsia, chest pain, shortness of b reath, seizure, syncope, lower extremity muscle aches, joint aches, backaches, depression, anxiety. Physical Examination: Vital Signs: The patient is 5 feet 4 inches, 230 pounds, BMI of 40 kg/sq m. Temperature 97.5 degree s Fahrenheit, pulse 72, respirations 18, blood pressure 103/62, O2 saturation 95% GENERAL: She is an obese female, lying in bed, in no acute distress. HEENT: Normocephalic, atraumatic. Anicteric. Pupils equal, round, and reactive to light. Extraocu lar movements are intact. Oropharynx clear. Neck: Supple. No masses. Respirations: Clear to auscultation bilaterally. Cardiac: Regular rate and rhythm. No gallops or rubs. Abdomen: Hypoactive bowel sounds. Soft, nondistended. Maybe mild tenderness at most in the midepig astric area. No hepatosplenomegaly. Obese. No peritoneal or Estevez signs. Extremities: No clubbing, cyanosis, or edema. 2+ pulses. NEURO: Alert and oriented x3, grossly nonfocal. 5/5 motor strength to light touch. Laboratory Data: The patient had a white count of 9, down from 12.8 yesterday; hemoglobin of 11.7, d own from 13.5; with an MCV of 83; platelet count 318; polys of 62%, down from 78%; lymphocytes 39%; m onocytes 6%; eosinophils 2%; basophils 1%. The patient had a sodium of 142; potassium 3.3; chloride 111; bicarb 23; BUN of 8; creatinine of 0.6; glucose 117; calcium 8.0; phosphorus 3.2; magnesium 2.1; total bilirubin 0.8, down from 1.3 yesterday. AST of 115, ALT of 175, alkaline phosphatase 121. To matt protein 7.1, albumin 3.1, globulin 4.0. Triglycerides 118, cholesterol 128, LDL 41, HDL 63. Marina poornima 289, lipase greater than 1500 on admission, now it is 1995. UA; 2+ blood, negative te st. Ultrasound of abdomen revealed gallstones in the gallbladder, a couple of gallbladder polyps joanna suring 5 mm or less, and the gallbladder wall was not thickened and the biliary tree is normal calibe r. MRCP was negative. Impression: 1.Gallstone pancreatitis, right upper quadrant pain maximum 10/10, now down to 0 with no nausea, vom iting, fevers, chills. Ultrasound revealed multiple gallstones and gallbladder polyps less than 5 mm in the gallbladder. MRCP is negative. Lipase greater than 1500, now increased to 1995. 2.Cholelithiasis. 3.Obesity. Recommendation: 1.Proceed with laparoscopic cholecystectomy as per Surgery. 2.Continue IV fluids, IV antibiotics. 3.Continue p.r.n. pain medications. 4.Keep the patient n.p.o. 5.Monitor labs. 6.Increase IV fluids from 100 to 150 mL an hour of normal saline. MARYSE/ROSEY Voice ID: [id number] Report ID: [id number]
== END 2018-11-04 16:47 | disposition home or self-care (01) | DRG 419 ==
LOC: ER 13:24 → ERHOLD 16:11 → 4TH 18:20
PROVIDERS: ADMIT Family Medicine; ATTEND Family Medicine
PROC: 0FT44ZZ Resection of Gallbladder, Percutaneous Endoscopic Approach (ICD-10-PCS; principal; 2018-11-03 12:00)
DX: K85.10 Biliary acute pancreatitis without necrosis or infection (principal); K80.20 Calculus of gallbladder without cholecystitis without obstruction; E78.5 Hyperlipidemia, unspecified; E11.9 Type 2 diabetes mellitus without complications; Z79.84 Long term (current) use of oral hypoglycemic drugs; Z86.73 Personal history of transient ischemic attack (TIA), and cerebral infarction without residual deficits
CPT/HCPCS: 36415; 74181; 76705; 80048; 80053; 80061; 80076; 81003; 81025; 82150; 82248; 82962; 83690; 83735; 84100; 84132; 85025; 88304; 94760; 96361; 96365; 96375; 99285; J0694; J0696; J1170; J2250; J2405; J2704; J2710; J3010; J7030